=== PATIENT | female | born 1955 | race Hispanic/Latino ===

== ENCOUNTER → 2025-06-07 | Outpatient (CLI) | payer OTHER ==
--- NOTE | 2025-06-07 12:59 | HMCIMG ---
CHEST 2VWS REASON: CHRONIC COUGH COMPARISON: None FINDINGS: Two views of the chest were obtained. Lungs are clear. Heart size is normal. 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 There is no pulmonary vascular congestion. Mediastinum and bony thorax appear unremarkable. Breast has multiple surgical clips from prior surgery. The bony thorax demonstrate osteopenia. 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 IMPRESSION: No acute cardiopulmonary process..
== END | disposition home or self-care (01) ==
LOC: RAH 12:21
DX: I70.0 Atherosclerosis of aorta (principal); R05.3 Chronic cough; M47.814 Spondylosis without myelopathy or radiculopathy, thoracic region
CPT/HCPCS: 71046